=== PATIENT | male | born 1955 | race Caucasian/White ===

== ENCOUNTER → 2020-07-06 14:59 | Outpatient (BNVA) | payer MEDICAID, SELFPAY | PROVIDERS: PCP Hospitalist; Visit Provider Urology | DX: Z13.89 Encounter for screening for other disorder (principal) | CPT/HCPCS: 99212 ==

== ENCOUNTER → 2021-01-25 12:52 | Outpatient (BNVA) | payer MEDICAID, SELFPAY | PROVIDERS: Visit Provider Urology | DX: R97.20 Elevated prostate specific antigen [PSA] (principal); N40.0 Benign prostatic hyperplasia without lower urinary tract symptoms | CPT/HCPCS: 99202 ==

== ENCOUNTER → 2021-05-27 12:59 | Outpatient (BNVA) | payer MEDICAID, SELFPAY | PROVIDERS: Visit Provider Urology | DX: Z13.89 Encounter for screening for other disorder (principal) ==

== ENCOUNTER → 2021-11-29 11:20 | Outpatient (BNVA) | payer MEDICAID, SELFPAY | PROVIDERS: PCP Hospitalist; Visit Provider Urology | DX: R97.20 Elevated prostate specific antigen [PSA] (principal); N40.0 Benign prostatic hyperplasia without lower urinary tract symptoms | CPT/HCPCS: 99212 ==

== ENCOUNTER 2022-06-09 19:41 | Emergency (ER) | payer MEDICARE, MEDICAID, SELFPAY ==
--- NOTE | ~2022-06-09 | US_ITS ---
EXAMINATION: US VENOUS ULTRASOUND WITH DOPPLER LOWER EXTREMITY, RIGHT CLINICAL INFORMATION: Asymmetric swelling, ecchymosis. COMPARISON: None available. TECHNIQUE: Ultrasound of the deep veins is performed from the hip to the calf with compression sonography and color and pulse Doppler assessment. Spectral analysis with color-flow imaging is performed. FINDINGS: Somewhat limited exam as patient is combative and uncooperative. There is normal venous compression and respiratory variation and augmented flow. The visualized common femoral vein, superficial femoral vein, profunda femoral vein, popliteal vein, and the trifurcation region shows no evidence of deep venous thrombosis. There is no significant popliteal fossa cyst. If the patient's symptoms persist, followup ultrasound in 5 days 7 days might be of value to exclude proximal propagation from a non-visualized calf vein. US/US venous duplex LE RT IMPRESSION: No DVT demonstrated in the right lower extremity.
--- NOTE | ~2022-06-09 | US_ITS ---
EXAMINATION: COLOR-FLOW DUPLEX IMAGING OF THE BILATERAL LOWER EXTREMITY ARTERIAL SYSTEM. VELOCITY MEASUREMENTS THROUGHOUT THE FEMORAL ARTERIES. CLINICAL INFORMATION: 66-year-old male with right leg pain COMPARISON: None RIGHT FEMORAL RUNOFF VELOCITIES: The right common femoral artery measures 160cm/s and is triphasic. The right profunda femoral artery measures 102cm/s and is triphasic. Right proximal superficial femoral artery measures 88 cm/s and is biphasic. Mid superficial femoral artery measures 209cm/s and is triphasic. Distal right superficial femoral artery [id number] and is triphasic. Right popliteal velocity measures 94cm/s and is biphasic. Posterior tibial velocity is 144cm/s and flow is biphasic. US/US arterial duplex LE RT IMPRESSION: 1. Moderate stenosis in the mid superficial femoral artery. 2. Mild stenoses of the right common femoral artery and right posterior tibial artery.
--- NOTE | ~2022-06-09 | XR_ITS ---
EXAMINATION: XR CHEST CLINICAL INFORMATION: Chest pain, evaluate for CHF. COMPARISON: Chest radiograph 03/09/2016. TECHNIQUE: Frontal view of the chest was obtained. FINDINGS: Evaluation is limited due to patient's rotation and poor inspiratory effort. There is diffuse interstitial thickening without discrete focal consolidation. No significant pleural effusion or pneumothorax. Stable cardiomediastinal silhouette. No acute osseous abnormalities. XR/XR chest 1V IMPRESSION: Diffuse interstitial thickening which is nonspecific and could be associated with pulmonary edema or atypical infections.
[2022-06-09 19:57] VITALS: BP 182/100; PULSE 82; RESP 18; TEMP 36.7; O2SAT 93; O2SAT 94; BMI 45.9
--- NOTE | 2022-06-09 21:02 | ED_ITS ---
HPI - General Adult General Chief complaint: Wound/Laceration Stated complaint: RT FOOT SORE SWELLING Time Seen by Provider: 06/09/22 20:46 Source: patient Mode of arrival: EMS Limitations: other ( Dementia) History of Present Illness HPI narrative: 66-year-old male who was sent to the emergency department for evaluation of right lower extremity swelling ecchymosis and blisters. The patient is not a reliable informant secondary to his dementia. the following was obtained prescribed transfer note: Wound on right heel ( open blister), anorexia, disorientation , tests CBC, PT/INR ultrasound right leg . Patient received Tylenol at 16:00 hours. Related Data Home Medications Medication Instructions Recorded Confirmed acetaminophen 325 mg capsule 650 mg PO QID PRN 07/06/20 11/29/21 atorvastatin 40 mg tablet 40 mg PO DAILY 07/06/20 11/29/21 benztropine 0.5 mg tablet 0.5 mg PO DAILY 07/06/20 11/29/21 dulaglutide 0.75 mg/0.5 mL 0.75 mg subcut QWEEK 07/06/20 11/29/21 subcutaneous pen injector (Trulicity) gemfibrozil 600 mg tablet 600 mg PO DAILY 07/06/20 11/29/21 lisinopril 5 mg tablet 5 mg PO DAILY 07/06/20 11/29/21 warfarin 5 mg tablet 5 mg PO DAILY 07/06/20 11/29/21 Previous Rx's Medication Instructions Recorded finasteride 5 mg tablet 5 mg PO DAILY 90 days #90 tabs 11/29/21 Allergies Allergy/AdvReac Type Severity Reaction Status Date / Time No Known Allergies Allergy Verified 11/24/21 09:59 [No Known Allergies*] Review of Systems Review of Systems: Unobtainable secondary to dementia [facility] Past Medical History [facility] Narrative: social history: Patient is resident of the [facility] Medical History Dementia Diabetes mellitus, type II Elevated PSA HTN (hypertension) Lupus anticoagulant disorder Major depressive disorder Thiamine deficiency Social History Social History Advance Directives: Yes Advance Directives Information Provided: No Advance Directives on File: No Physical Exam ED Vital Signs: Vital Signs - 24 hr 06/09/22 19:57 06/10/22 03:56 06/10/22 05:51 Temperature 98.1 F 98.2 F 98.4 F Pulse Rate 82 68 99 Respiratory Rate 18 14 18 Blood Pressure 131/69 154/64 H Pulse Oximetry 93 92 Oxygen Delivery Method Room Air Room Air Room Air BMI result Body Mass Index 45.9 Const Other: awake, alert, male patient, answers questions with yes or no answers, lacks insight as to why he is here, unreliable informant secondary to his dementia, elevated BMI 45.9 [facility] Head: Yes normal to inspection, Yes normocephalic and Yes atraumatic Ears: external ears normal General nose exam: Normal external nose present Face and sinus: Yes normal facial exam Mouth: Normal oral and palatal mucosa present Throat: Yes posterior oropharynx normal Eyes General: appearance normal, both eyes and all related structures Pupils: Equal, round and reactive pupils present Neck Neck: Yes normal visual inspection, Yes no lymphadenopathy, Yes trachea midline and Yes supple Chest Chest palpation & inspection: normal inspection of the chest and normal palpation of entire chest wall Resp Effort & Inspection: normal respiratory effort and able to speak in complete se ntences Auscultation: clear to auscultation bilaterally Cardio Rate: regular rate Rhythm: regular rhythm Heart sounds: S1 normal heart sound present, S2 normal heart sound present and no murmurs GI Other: abdomen is soft, nontender nondistended, obese General: Yes no CVA tenderness Back/Spine/Pelvis Back: no CVA tenderness Skin General skin exam: no rashes or lesions noted Neuro Cranial nerves: Yes CN's II-XII intact bilaterally and Yes Equal, round and reactive pupils present Cognition (Neuro): normal cognition Extrem Other: patient's right lower extremity appears larger than the left, right foot exam: wearing heel protecting boot on his left foot, the patient has an unroofed blister over his heel and a ecchymotic blister on his lateral heel, there is ecchymosis of the toes and foot , there is increased warmth to the right foot but no erythema. Medical Decision Making Medical Decision Making MDM Narrative: 66-year-old male with a history of dementia, diabetes mellitus, hypertension, hyperlipidemia, hypercoagulable state secondary to lupus anticoagulant, depression, BPH, sent in from [facility] for evaluation of increased swelling, ecchymosis and ecchymotic blisters to his right foot and heel. Patient is unreliable informant and lacks insight as to why he is here. Patient was awake, pleasant, cooperative in answering questions with mainly yes or no answers. Patient's right extremity is ecchymotic and large in the left lower extremity. I did order CBC, CMP, PT /INR, PTT, BNP, troponin, EKG, chest x-ray right lower extremity ultrasound venous and arterial to rule out DVT or vascular compromise. 2310: My independent interpretation patient's workup data is as follows: CBC was normal. CMP was normal. CRP is elevated 6.08. BNP is normal at 15. INR is subtherapeutic at 1.4. Chest x-ray on my interpretation revealed no acute disease compared to previous, I do not think that he has CHF based on this x-ray. Twelve EKG was unremarkable. 0745: The patient initially had arterial Doppler studies but then refused the venous study since he was too tired and we no longer had ultrasound coverage. Therefore the patient was kept in the emergency department until he can get a duplex ultrasound of his right lower extremity this morning. At the end of my s hift, patient's care was turned over to my colleague Dr. Stone. Differential Diagnosis Differential includes was not limited to DVT, bleeding into the extremity, cellulitis, pressure ulcers Admission/Observation Consideration of admission/observation: Escalation of care including admissi on/observation considered Lab Data MDM Lab Attestation statement: I reviewed the patient's lab results. 06/09/22 22:14 06/09/22 22:14 Labs: Lab Results 06/09/22 06/09/22 06/09/22 Range/Units 22:14 22:14 22:14 WBC 10.6 (4.8-10.8) X10*3/uL RBC 4.54 L (4.60-5.80) X10*6/uL Hgb 13.6 L (14.0-18.0) g/dl Hct 40.4 L (42.0-52.0) % MCV 89.0 (80.0-98.0) fL MCH 30.0 (27.0-33.0) pg MCHC 33.7 (31.0-36.0) g/dl RDW 12.7 (11.0-16.0) % Plt Count 339 (160-400) X10*3/uL MPV 10.7 (9.4-12.4) fL Immature Gran % (Auto) 0.2 (0.0-0.4) % Neut % (Auto) 71.8 (45-73) % Lymph % (Auto) 17.7 L (20-40) % [place] % (Auto) 8.7 (2-11) % Eos % (Auto) 1.0 (0-4) % Baso % (Auto) 0.6 (0-2) % Lymph # (Auto) 1.9 (1.2-4.9) X10*3/uL [place] # (Auto) 0.9 (0.1-1.2) X10*3/uL Eos # (Auto) 0.1 (0.0-0.4) X10*3/uL Baso # (Auto) 0.1 (0.0-0.2) X10*3/uL Abs Immat Gran (auto) 0.02 (0.00-0.03) X10*3/uL Absolute Neuts (auto) 7.6 (2.0-8.3) x10*3/uL Absolute Nucleated RBC 0.000 (0.0-0.012) X10*3/uL Nucleated RBC % (auto) 0.0 (0.0-0.2) /100WBC PT 15.8 H (10.0-13.1) SEC INR 1.4 H (0.9-1.1) APTT 38.2 H (26.0-36.4) SEC Sodium 136 (135-145) mmol/L Potassium 4.2 (3.3-5.1) mmol/L Chloride 96 (96-108) mmol/L Carbon Dioxide 27 (22-29) mmol/L Anion Gap 17 (12-20) BUN 23 H (9-16) mg/dL Creatinine 0.97 (0.5-1.4) mg/dL Estim Creat Clear Calc 102.9 Estimated GFR > 60 Random Glucose 106 (60-115) mg/dL Lactic Acid (0.5-2.0) mmol/L Calcium 9.7 (8.4-10.2) mg/dL Total Bilirubin 1.0 (0.0-1.0) mg/dL AST 34 (5-37) U/L ALT 34 (0-40) U/L Alkaline Phosphatase 102 (39-117) U/L Troponin I High Sens (<3.5-35.0) ng/L C-Reactive Protein (< or = 0.50) mg/dL B-Natriuretic Peptide Total Protein 7.8 (6.5-8.0) g/dL Albumin 4.2 (3.5-5.0) g/dL Lipase (8-78) U/L 06/09/22 06/09/22 06/09/22 Range/Units 22:14 22:14 22:14 WBC (4.8-10.8) X10*3/uL RBC (4.60-5.80) X10*6/uL Hgb (14.0-18.0) g/dl Hct (42.0-52.0) % MCV (80.0-98.0) fL MCH (27.0-33.0) pg MCHC (31.0-36.0) g/dl RDW (11.0-16.0) % Plt Count (160-400) X10*3/uL MPV (9.4-12.4) fL Immature Gran % (Auto) (0.0-0.4) % Neut % (Auto) (45-73) % Lymph % (Auto) (20-40) % [place] % (Auto) (2-11) % Eos % (Auto) (0-4) % Baso % (Auto) (0-2) % Lymph # (Auto) (1.2-4.9) X10*3/uL [place] # (Auto) (0.1-1.2) X10*3/uL Eos # (Auto) (0.0-0.4) X10*3/uL Baso # (Auto) (0.0-0.2) X10*3/uL Abs Immat Gran (auto) (0.00-0.03) X10*3/uL Absolute Neuts (auto) (2.0-8.3) x10*3/uL Absolute Nucleated RBC (0.0-0.012) X10*3/uL Nucleated RBC % (auto) (0.0-0.2) /100WBC PT (10.0-13.1) SEC INR (0.9-1.1) APTT (26.0-36.4) SEC Sodium (135-145) mmol/L Potassium (3.3-5.1) mmol/L Chloride (96-108) mmol/L Carbon Dioxide (22-29) mmol/L Anion Gap (12-20) BUN (9-16) mg/dL Creatinine (0.5-1.4) mg/dL Estim Creat Clear Calc Estimated GFR Random Glucose (60-115) mg/dL Lactic Acid 1.3 (0.5-2.0) mmol/L Calcium (8.4-10.2) mg/dL Total Bilirubin (0.0-1.0) mg/dL AST (5-37) U/L ALT (0-40) U/L Alkaline Phosphatase (39-117) U/L Troponin I High Sens (<3.5-35.0) ng/L C-Reactive Protein 6.08 H (< or = 0.50) mg/dL B-Natriuretic Peptide Cancelled Total Protein (6.5-8.0) g/dL Albumin (3.5-5.0) g/dL Lipase 18 (8-78) U/L 06/09/22 06/09/22 Range/Units 22:14 22:14 WBC (4.8-10.8) X10*3/uL RBC (4.60-5.80) X10*6/uL Hgb (14.0-18.0) g/dl Hct (42.0-52.0) % MCV (80.0-98.0) fL MCH (27.0-33.0) pg MCHC (31.0-36.0) g/dl RDW (11.0-16.0) % Plt Count (160-400) X10*3/uL MPV (9.4-12.4) fL Immature Gran % (Auto) (0.0-0.4) % Neut % (Auto) (45-73) % Lymph % (Auto) (20-40) % [place] % (Auto) (2-11) % Eos % (Auto) (0-4) % Baso % (Auto) (0-2) % Lymph # (Auto) (1.2-4.9) X10*3/uL [place] # (Auto) (0.1-1.2) X10*3/uL Eos # (Auto) (0.0-0.4) X10*3/uL Baso # (Auto) (0.0-0.2) X10*3/uL Abs Immat Gran (auto) (0.00-0.03) X10*3/uL Absolute Neuts (auto) (2.0-8.3) x10*3/uL Absolute Nucleated RBC (0.0-0.012) X10*3/uL Nucleated RBC % (auto) (0.0-0.2) /100WBC PT (10.0-13.1) SEC INR (0.9-1.1) APTT (26.0-36.4) SEC Sodium (135-145) mmol/L Potassium (3.3-5.1) mmol/L Chloride (96-108) mmol/L Carbon Dioxide (22-29) mmol/L Anion Gap (12-20) BUN (9-16) mg/dL Creatinine (0.5-1.4) mg/dL Estim Creat Clear Calc Estimated GFR Random Glucose (60-115) mg/dL Lactic Acid (0.5-2.0) mmol/L Calcium (8.4-10.2) mg/dL Total Bilirubin (0.0-1.0) mg/dL AST (5-37) U/L ALT (0-40) U/L Alkaline Phosphatase (39-117) U/L Troponin I High Sens 6.3 (<3.5-35.0) ng/L C-Reactive Protein (< or = 0.50) mg/dL B-Natriuretic Peptide 15 Total Protein (6.5-8.0) g/dL Albumin (3.5-5.0) g/dL Lipase (8-78) U/L Independent Interpretation I performed an independent interpretation of an: EKG and Plain X-Ray Interpretation: My independent interpretation of the patient's one-view chest x-ray is as follows: increased interstitial markings bilaterally unchanged compared to x- ray dated 03/24/2016 Radiology Impression Discussion of test interpretation with radiology: I have reviewed the radiologist's reading. Radiologist Impression: XR chest 1V IMPRESSION: Diffuse interstitial thickening which is nonspecific and could be associated with pulmonary edema or atypical infections. Dictated By:Anastasia Siddiqui External Record Review External record reviewed: Outpatient record ( record sent in from [facility] were reviewed) Discharge Plan Discharge Clinical Impression: Leg edema, right, Ecchymosis, Blood blister, Warfarin anticoagulation Patient Disposition: Still a Patient Additional Instructions: You were not anemic with an H&H of 13.6 and 40.4. Your PT/INR were subtherapeutic at 15.8 and 1.4. The provider that manages your PT/INR will need to increase your warfarin and follow your PT/INR to make sure that your anticoagulated. Your comprehensive metabolic panel was normal. Prescriptions: No Action acetaminophen 325 mg capsule 650 mg PO QID PRN atorvastatin 40 mg tablet 40 mg PO DAILY benztropine 0.5 mg tablet 0.5 mg PO DAILY warfarin 5 mg tablet 5 mg PO DAILY gemfibrozil 600 mg tablet 600 mg PO DAILY lisinopril 5 mg tablet 5 mg PO DAILY Trulicity 0.75 mg/0.5 mL pen injector 0.75 mg subcut QWEEK finasteride 5 mg tablet 5 mg PO DAILY 90 Days Qty: 90 3RF
--- NOTE | 2022-06-09 21:08 | ECG_ITS ---
Test Reason : shortness of natalie Blood Pressure : / mmHG Vent. Rate : 080 BPM Atrial Rate : 080 BPM P-R Int : 134 ms QRS Dur : 094 ms QT Int : 372 ms P-R-T Axes : 067 021 049 degrees QTc Int : 429 ms Normal sinus rhythm Cannot rule out Anterior infarct , age undetermined Abnormal ECG When compared with ECG of 09-MAR-2016 11:01, No significant change was found Referred By: Brandyn Carlin Electronically Signed By:GUILLE MEAD MD
[2022-06-09 22:21] LABS: MANUAL DIFF FLAG NO
[2022-06-09 22:28] LABS: Basophils Absolute Auto 0.1 X10*3/uL (0.0-0.2); Basophils Percent Auto 0.6 % (0-2); Eosinophils Absolute Auto 0.1 X10*3/uL (0.0-0.4); Hematocrit 40.4 % (42.0-52.0); Hemoglobin 13.6 g/dl (14.0-18.0); Imm Gran Abs Auto 0.02 X10*3/uL (0.00-0.03); Imm Gran Pct Auto 0.2 % (0.0-0.4); Lymphocytes Absolute Auto 1.9 X10*3/uL (1.2-4.9); Lymphocytes Percent Auto 17.7 % (20-40); Mean Corpuscular HGB Conc 33.7 g/dl (31.0-36.0); Mean Platelet Volume 10.7 fL (9.4-12.4); Monocytes Absolute Auto 0.9 X10*3/uL (0.1-1.2); Monocytes Percent Auto 8.7 % (2-11); Neutrophils Absolute Auto 7.6 x10*3/uL (2.0-8.3); Neutrophils Percent Auto 71.8 % (45-73); Platelet Count 339 X10*3/uL (160-400); Red Blood Count 4.54 X10*6/uL (4.60-5.80); Red Cell Distribution Width 12.7 % (11.0-16.0); White Blood Count 10.6 X10*3/uL (4.8-10.8)
[2022-06-09 22:34] LABS: INTERNATIONAL NORM RATIO 1.4 (0.9-1.1); Prothrombin Time 15.8 SEC (10.0-13.1)
[2022-06-09 22:37] LABS: Lactic Acid 1.3 mmol/L (0.5-2.0); Partial Thromboplastin Time 38.2 SEC (26.0-36.4)
[2022-06-09 22:40] LABS: C Reactive Protein 6.08 mg/dL (< or = 0.50); Lipase 18 U/L (8-78)
[2022-06-09 22:43] LABS: Alanine Aminotransferase 34 U/L (0-40); Albumin Level 4.2 g/dL (3.5-5.0); Alkaline Phosphatase 102 U/L (39-117); Anion Gap 17 (12-20); Aspartate Amino Transferase 34 U/L (5-37); Blood Urea Nitrogen 23 mg/dL (9-16); Calcium 9.7 mg/dL (8.4-10.2); Carbon Dioxide 27 mmol/L (22-29); Chloride 96 mmol/L (96-108); Creatinine Clr Calc Pharmacy 102.9; Estimated Glomerular Filt Rate > 60; Glucose Random 106 mg/dL (60-115); Potassium 4.2 mmol/L (3.3-5.1); Sodium 136 mmol/L (135-145); Total Protein 7.8 g/dL (6.5-8.0)
[2022-06-09 22:45] LABS: Troponin-I High Sensitivity 6.3 ng/L (<3.5-35.0)
[2022-06-09 22:48] LABS: B Type Natriuretic Peptide 15 pg/mL (<100)
--- NOTE | 2022-06-10 00:22 | PC.NURSE ---
Patient refused IV.
[2022-06-10 03:56] VITALS: BP 131/69; PULSE 68; RESP 14; TEMP 36.8
[2022-06-10 05:51] VITALS: BP 154/64; PULSE 99; RESP 18; TEMP 36.9; O2SAT 92
[2022-06-10 08:45] LABS: Appearance Urine Clear; Color Urine Yellow; Glucose Urine UA Negative (Negative); Leukocyte Esterase Urine Negative (Negative); Nitrite Urine Negative (Negative); UMIC TRIGGER UACC YES; Urine Blood Small (1+) (Negative); Urine Ketones Negative (Negative); Urine Protein Trace mg/dL (Neg-Trace)
--- NOTE | 2022-06-10 08:47 | PC.NURSE ---
U/S COMPLETE, UA SENT, PT INCONTINENT OF URINE AND CLEANED AND LINENS CHANGED, NO COMPLAINTS, MULT BRUISES ON LOWER LEGS AND HE IS UNSURE HOW HE GOT THEM
[2022-06-10 08:51] LABS: Bacteria Urine None Seen (None Seen); Hyaline Casts Urine 0-2 /LPF (0-2); RBC Urine >20 /HPF (0-2); Squamous Epithelial Cell Urine 0-2 /HPF (0-2); WBC Urine 0-5 /HPF (0-5)
--- NOTE | 2022-06-10 10:21 | PC.NURSE ---
pt has a popped blister approx 3 inch x 3 inch covered with bandage, report called to snf
--- NOTE | 2022-06-10 11:12 | PC.NURSE ---
assumed care of pt at 110, pt resting quietly pending transportation to [facility], RN-RN report called in by prior RN.
== END 2022-06-10 12:09 ==
PROVIDERS: Emergency Medicine Emergency Medical Services; Emergency Provider Emergency Medicine; PCP Hospitalist
DX: R60.0 Localized edema (principal); R07.89 Other chest pain; R23.3 Spontaneous ecchymoses; R06.02 Shortness of breath; M79.604 Pain in right leg; Z79.01 Long term (current) use of anticoagulants; Z79.899 Other long term (current) drug therapy
CPT/HCPCS: 36415; 71045; 80053; 81001; 83605; 83690; 83880; 84484; 85025; 85610; 85730; 86140; 87040; 93005; 93926; 93971; 99284

== ENCOUNTER 2022-11-28 11:14 | Outpatient (AMB) | payer MEDICARE, MEDICAID, SELFPAY ==
--- NOTE | 2022-11-28 11:18 | MHC.OFFVIS ---
Intake Intake Visit Reasons: 1Y PSA(psa?) Intake Note: Patient is Present for Follow Up Urology Medication: Finasteride Antibiotic Allergies:None Blood Thinners: Warfarin PSA Lab was not completed Allergies No Known Allergies [No Known Allergies*] Allergy (Verified 11/28/22 11:19) Medication List - Last Reconciled 11/28/22 by Mark Victor MD acetaminophen 650 mg PO QID PRN atorvastatin 40 mg PO DAILY benztropine 0.5 mg PO DAILY dulaglutide (Trulicity) 0.75 mg subcut QWEEK finasteride 5 mg PO DAILY 90 days gemfibrozil 600 mg PO DAILY lisinopril 5 mg PO DAILY warfarin 5 mg PO DAILY HPI HPI Comments History of Present Illness Details Filiberto is a male. Resident of [facility]. He is a patient of Dr. colvin. He is seen for the following urologic condition - lower urinary tract symptoms - elevated PSA Care worker states in diapers with incontinence Does have sensation but often can not make it to the bathroom in time Has physical limitations in wheelchair Addressing overactive bladder not likely to be helpful Has been on prompted voiding Suggest moving to timed voiding every 3-[address] resident on toilet and wait 2-3 minutes Elevated PSA Has been on finasteride for prostate symptoms PSA 12/26 5.1, 11/26 1.5 PFSH Medical History Elevated PSA Major depressive disorder Diabetes mellitus, type II HTN (hypertension) Thiamine deficiency Lupus anticoagulant disorder Dementia Review of Systems Const Denies chills and Denies fever(s) Card Reports no additional complaints and Denies syncope Resp Denies cough GI Denies abdominal pain and Denies heartburn Reports as per HPI and Denies change in libido Neuro Denies syncope Psych Denies change in libido Endo Denies change in libido Physical Exam Const General: cooperative, healthy appearing, comfortable and no acute distress Orientation/consciousness: patient oriented x3 HEENT Face and sinus: Yes normal facial exam Mouth: moist mucous membranes Neck Neck: Yes normal visual inspection, Yes full ROM and Yes trachea midline Chest Chest palpation & inspection: normal inspection of the chest Resp Effort & Inspection: normal respiratory effort, able to speak in complete sentences and no respiratory distress GI Inspection: Yes normal to inspection Back/Spine/Pelvis Cervical Spine: normal cervical lordosis Thoracic/Lumbar Spine: thoracic and lumbar spine normal to inspection Skin General skin exam: no rashes or lesions noted Neuro General: patient oriented x3, gait normal, tone normal and moves all extremities Extrem General: Yes normal to inspection and Yes capillary refill normal Assessment & Plan Assessment & Plan (1) Urinary incontinence: Code(s): R32 - Unspecified urinary incontinence Qualifiers: Urinary Incontinence type: urge incontinence Qualified Code(s): N39.41 - Urge incontinence (2) BPH (benign prostatic hyperplasia): Code(s): N40.0 - Benign prostatic hyperplasia without lower urinary tract symptoms Qualifiers: Lower urinary tract symptom presence: symptoms present Lower urinary tract symptom detail: urinary frequency Qualified Code(s): N40.1 - Benign prostatic hyperplasia with lower urinary tract symptoms; R35.0 - Frequency of micturition (3) Elevated PSA: Code(s): R97.20 - Elevated prostate specific antigen [PSA] Plan Six month follow-up Orders: Orders Prostate Specific Antigen 6 Months R97.20 - Elevated prostate specific antigen [PSA] Patient Instructions: Imaging studies, laboratory and physical exam results were discussed and reviewed in detail. No major barriers to patient understanding were identified. An opportunity to ask questions regarding the treatment plan was provided. All questions were answered. The patient expressed understanding and agreement with the above treatment plan. The patient is aware they should contact our office by phone for worsening of their current condition or the appearance of new urologic symptoms. Compliance is encouraged with any medications and followup testing that is ordered. It is a privilege to participate in the urologic care of your patient. If you have any questions or concerns regarding treatment for the above conditions, or other urologic issues, please do not hesitate to contact me. The office telephone contact is [phone]. This note is constructed using voice recognition software. While every effort has been made to ensure accuracy dehairing machine tender errors may have been included. Yours sincerely, Dr Mark Victor MD, [facility] - Urology Providers of Expert, Compassionate Care for the Genitourinary System Coding Level of Care Code Est Pt Level 4 (74302) Diagnoses Urge incontinence of urine N39.41 Urinary Incontinence type: urge incontinence Benign prostatic hyperplasia with urinary frequency N40.1; R35.0 Lower urinary tract symptom presence: symptoms present Lower urinary tract symptom detail: urinary frequency Elevated PSA R97.20
== END 2022-11-28 12:17 | disposition home or self-care (01) ==
LOC: HO.HUSH 11:14
PROVIDERS: PCP Hospitalist; Visit Provider Urology
DX: N40.1 Benign prostatic hyperplasia with lower urinary tract symptoms (principal); N39.41 Urge incontinence; R35.0 Frequency of micturition; R97.20 Elevated prostate specific antigen [PSA]
CPT/HCPCS: 99214

== ENCOUNTER → 2022-11-28 11:14 | Outpatient (BNVA) | payer MEDICARE, MEDICAID, SELFPAY | PROVIDERS: PCP Hospitalist; Visit Provider Urology | DX: N40.1 Benign prostatic hyperplasia with lower urinary tract symptoms (principal); R35.0 Frequency of micturition; N39.41 Urge incontinence; R97.20 Elevated prostate specific antigen [PSA] | CPT/HCPCS: 99212 ==

== ENCOUNTER 2023-06-01 10:45 | Outpatient (AMB) | payer MEDICARE, MEDICAID, SELFPAY ==
--- NOTE | 2023-06-01 10:56 | A.OFFVIS_ITS ---
Intake Visit Reasons: 6m follow up/PSA Intake Note: Patient is Present for Follow Up Urology Medication: Finasteride, Antibiotic Allergies: None Blood Thinners: Warfarin Allergies No Known Allergies [No Known Allergies*] Allergy (Verified 06/01/23 10:56) Medication List - Last Reconciled 06/01/23 by Mark Victor MD acetaminophen 650 mg PO QID PRN atorvastatin 40 mg PO DAILY benztropine 0.5 mg PO DAILY dulaglutide (Trulicity) 0.75 mg subcut QWEEK finasteride 5 mg PO DAILY 90 days gemfibrozil 600 mg PO DAILY lisinopril 5 mg PO DAILY warfarin 5 mg PO DAILY HPI Comments Details: Filiberto is a male. Resident of [facility]. He is a patient of Dr. colvin. He is seen for the following urologic condition - lower urinary tract symptoms - elevated PSA Six-month follow-up Care worker states in diapers with incontinence Does have sensation but often can not make it to the bathroom in time Has physical limitations in wheelchair Addressing overactive bladder not likely to be helpful Has been on prompted voiding Suggest moving to timed voiding every 3-[address] resident on toilet and wait 2-3 minutes Twelve month follow-up PSA office Elevated PSA Has been on finasteride for prostate symptoms PSA 12/26 5.1, 11/26 1.5, 11/27 2.2 PFSH Medical History Elevated PSA Major depressive disorder Diabetes mellitus, type II HTN (hypertension) Thiamine deficiency Lupus anticoagulant disorder Dementia Review of Systems Const Denies chills and Denies fever(s) Card Reports no additional complaints and Denies syncope Resp Denies cough GI Denies abdominal pain and Denies heartburn Reports as per HPI and Denies change in libido Neuro Denies syncope Psych Denies change in libido Endo Denies change in libido Physical Exam Const General: cooperative, healthy appearing, comfortable and no acute distress Orientation/consciousness: patient oriented x3 HEENT Face and sinus: Yes normal facial exam Mouth: moist mucous membranes Neck Neck: Yes normal visual inspection, Yes full ROM and Yes trachea midline Chest Chest palpation & inspection: normal inspection of the chest Resp Effort & Inspection: normal respiratory effort, able to speak in complete sentences and no respiratory distress GI Inspection: Yes normal to inspection Back/Spine/Pelvis Cervical Spine: normal cervical lordosis Thoracic/Lumbar Spine: thoracic and lumbar spine normal to inspection Skin General skin exam: no rashes or lesions noted Neuro General: patient oriented x3, gait normal, tone normal and moves all extremities Extrem General: Yes normal to inspection and Yes capillary refill normal Assessment & Plan Assessment & Plan (1) Elevated PSA: Code(s): R97.20 - Elevated prostate specific antigen [PSA] Category: Medical (2) BPH (benign prostatic hyperplasia): Code(s): N40.0 - Benign prostatic hyperplasia without lower urinary tract symptoms Category: Medical Qualifiers: Lower urinary tract symptom presence: symptoms present Lower urinary tract symptom detail: urinary frequency Qualified Code(s): N40.1 - Benign prostatic hyperplasia with lower urinary tract symptoms; R35.0 - Frequency of micturition Plan Twelve month follow-up Orders: Orders Prostate Specific Antigen 364 Days N40.1 - Benign prostatic hyperplasia with lower urinary tract symptoms, R35.0 - Frequency of micturition Patient Instructions: Imaging studies, laboratory and physical exam results were discussed and reviewed in detail. No major barriers to patient understanding were identified. An opportunity to ask questions regarding the treatment plan was provided. All questions were answered. The patient expressed understanding and agreement with the above treatment plan. The patient is aware they should contact our office by phone for worsening of their current condition or the appearance of new urologic symptoms. Compliance is encouraged with any medications and followup testing that is ordered. It is a privilege to participate in the urologic care of your patient. If you have any questions or concerns regarding treatment for the above conditions, or other urologic issues, please do not hesitate to contact me. The office telephone contact is [phone]. This note is constructed using voice recognition software. While every effort has been made to ensure accuracy transportation superintendent errors may have been included. Yours sincerely, Dr Mark Victor MD, [facility] - Urology Providers of Expert, Compassionate Care for the Genitourinary System Coding Level of Care Code Est Pt Level 3 (71423) Diagnoses Elevated PSA R97.20 Benign prostatic hyperplasia with urinary frequency N40.1; R35.0 Lower urinary tract symptom presence: symptoms present Lower urinary tract symptom detail: urinary frequency
== END 2023-06-01 11:29 | disposition home or self-care (01) ==
PROVIDERS: PCP Hospitalist; Visit Provider Urology
DX: R97.20 Elevated prostate specific antigen [PSA] (principal); N40.1 Benign prostatic hyperplasia with lower urinary tract symptoms; R35.0 Frequency of micturition
CPT/HCPCS: 99213

== ENCOUNTER → 2023-06-01 10:45 | Outpatient (BNVA) | payer MEDICARE, MEDICAID, SELFPAY | PROVIDERS: PCP Hospitalist; Visit Provider Urology | DX: R97.20 Elevated prostate specific antigen [PSA] (principal); N40.1 Benign prostatic hyperplasia with lower urinary tract symptoms; R35.0 Frequency of micturition | CPT/HCPCS: 99212 ==

== ENCOUNTER 2024-05-27 11:14 | Outpatient (AMB) | payer MEDICARE, MEDICAID, SELFPAY ==
--- NOTE | 2024-05-27 12:06 | A.OFFVIS_ITS ---
Intake Visit Reasons: 1yr/Follow up/PSA/PVR(PSA?) Intake Note: Filiberto 68 yr old male presents today for his follow up visit. Allergies No Known Allergies [No Known Allergies*] Allergy (Verified 06/01/23 10:56) HPI Comments Details: Filiberto is a male. Resident of [facility]. He is a patient of Dr. Galo. He is seen for the following urologic condition - lower urinary tract symptoms - elevated PSA Yearly follow-up PSA 2.65 Slight increase Continue finasteride Care worker states in diapers with incontinence Does have sensation but often can not make it to the bathroom in time Has physical limitations in wheelchair Addressing overactive bladder not likely to be helpful Has been on prompted voiding Suggest moving to timed voiding every 3-[address] resident on toilet and wait 2-3 minutes Twelve month follow-up PSA office Elevated PSA Has been on finasteride for prostate symptoms PSA 12/26 5.1, 11/26 1.5, 11/27 2.2, 03/31 2.2 PFSH Medical History Elevated PSA Major depressive disorder Diabetes mellitus, type II HTN (hypertension) Thiamine deficiency Lupus anticoagulant disorder Dementia Review of Systems Const Denies chills and Denies fever(s) Card Reports no additional complaints and Denies syncope Resp Denies cough GI Denies abdominal pain and Denies heartburn Reports as per HPI and Denies change in libido Neuro Denies syncope Psych Denies change in libido Endo Denies change in libido Physical Exam Const General: cooperative, healthy appearing, comfortable and no acute distress Orientation/consciousness: patient oriented x3 HEENT Face and sinus: Yes normal facial exam Mouth: moist mucous membranes Neck Neck: Yes normal visual inspection, Yes full ROM and Yes trachea midline Chest Chest palpation & inspection: normal inspection of the chest Resp Effort & Inspection: normal respiratory effort, able to speak in complete sentences and no respiratory distress GI Inspection: Yes normal to inspection Back/Spine/Pelvis Cervical Spine: normal cervical lordosis Thoracic/Lumbar Spine: thoracic and lumbar spine normal to inspection Skin General skin exam: no rashes or lesions noted Neuro General: patient oriented x3, gait normal, tone normal and moves all extremities Extrem General: Yes normal to inspection and Yes capillary refill normal Results AMB Urinalysis, Automated UA Leukoctes 70 Feroz/uL Last Edit by LENY Mckenzie on 05/27/24 12:09 UA Nitrite Positive Last Edit by LENY Mckenzie on 05/27/24 12:09 UA Urobilinogen 0.2 mg/dL Last Edit by LENY Mckenzie on 05/27/24 12:09 UA Protein 15 mg/dL Last Edit by LENY Mckenzie on 05/27/24 12:09 UA pH 6.0 Last Edit by LENY Mckenzie on 05/27/24 12:09 UA Blood 25 Luis/uL Last Edit by LENY Mckenzie on 05/27/24 12:09 UA Specific Stevenson 1.020 Last Edit by LENY Mckenzie on 05/27/24 12:0 9 UA Ketone Negative Last Edit by LENY Mckenzie on 05/27/24 12:09 UA Bilirubin 0 mg/dL Last Edit by LENY Mckenzie on 05/27/24 12:09 UA Glucose 0 mg/dL Last Edit by LENY Mckenzie on 05/27/24 12:09 Assessment & Plan Assessment & Plan (1) Urinary incontinence: Code(s): R32 - Unspecified urinary incontinence Category: Medical Qualifiers: Urinary Incontinence type: urge incontinence Qualified Code(s): N39.41 - Urge incontinence Plan Twelve month follow-up PSA Orders: Orders Prostate Specific Antigen 12 Months R97.20 - Elevated prostate specific antigen [PSA] AMB Urinalysis Automated Today N39.41 - Urge incontinence Patient Instructions: This note is constructed using voice recognition software. While every effort has been made to ensure accuracy employee development director errors may have been included. Imaging studies, laboratory and physical exam results were discussed and reviewed in detail. No major barriers to patient understanding were identified. An opportunity to ask questions regarding the treatment plan was provided. All questions were answered. The patient expressed understanding and agreement with the above treatment plan. The patient is aware they should contact our office by phone for worsening of their current condition or the appearance of new urologic symptoms. Compliance is encouraged with any medications and followup testing that is ordered. It is a privilege to participate in the urologic care of your patient. If you have any questions or concerns regarding treatment for the above conditions, or other urologic issues, please do not hesitate to contact me. The office telephone contact is [phone]. Sincerely, Dr Mark Victor MD, [facility] - Urology Compassionate Specialist Care for the Genitourinary System Coding Level of Care Code Est Pt Level 4 (03946) Complex EM visit Add On G2211 Diagnoses Urge incontinence of urine N39.41 Urinary Incontinence type: urge incontinence
--- OUTSIDE RECORDS SUMMARY | 2024-05-27 13:30 | XMS_ITS | Patient Health Record ---
Author Organization [facility] Address [address] [place] [address] Care Team Providers Care Category Planner Name Role Phone Jacinto Galo Primary Care Provider Noe Restrepo Unavailable [phone] Allergies No Known Allergies Reason For Referral No Information Medications Medication SIG (Take, Route, Frequency, Duration) Notes Start Date End Date Status Ferrous Sulfate 325 (65 Fe) MG 1 tablet Orally Once a day for 30 day(s) Active Propranolol HCl 10 MG 1 tablet Orally th ree half tabs 3 times a day Active Eliquis 5 MG as directed Orally Active PriLOSEC OTC 20 MG 1 tablet 30 minutes before morning meal Orally Once a day for 30 day(s) Active Docusate Sodium 100 MG 1 capsule as need ed Orally Once a day for 30 day(s) Active Multivitamin & Mineral Active Bisacodyl 10 MG 1 suppository as nee ded Rectal Once a day for 30 day(s) Active Acetaminophen 325 MG 1 tablet as needed Orally every 4 hrs Active Haloperidol 1 MG 1/2 tablet orally th ree times a day Active Vitamin M32-Rlsbn Acid 500-400 MCG as directed Orally Active Glucagon Emergency 1 MG as directed Injection Active Trulicity 0.75 MG/0.5ML as directed Subcutaneous Active Gemfibrozil 600 MG 1 tablet 30 minutes before morning and evening meals Orally Twice a day for 30 day(s) Active Finasteride 5 MG 1 tablet Orally Once a day for 30 day(s) Active Senna 8.6 MG 2 tablets at bedtime as needed Orally Once a day for 30 day(s) Active Fleet Enema 7-19 GM/118ML as directed Rectal Active Mirtazapine 7.5 MG 2 tablets at bedtime Orally Once a day for 30 day(s) Active Benztropine Mesylate 0.5 MG 1 tablet at bedtime Orally Once a day for 30 day(s) Active metFORMIN HCl 1000 MG 1 tablet with a me al Orally twice a day Active Atorvastatin Calcium 40 MG 1 tablet Oral ly Once a day for 30 day(s) Active Magnesium Oxide 400 MG 1 tablet as neede d Orally Once a day for 30 day(s) Active Actos 30 MG 1 tablet Orally Once a day for 30 day(s) Active Lisinopril 5 MG 1 tablet Orally Once a day for 30 day(s) Active Immunizations Vaccine Route Administration Date Status Comme nts Influenza Unknown 11/05/2020 Administered Social History Tobacco Use: Social History Observation Description Date Details (start date - stop date) Current Smoker NA - NA Tobacco Use/Smoking Question Answer Notes Patient is a current smoker How often do you smoke cigarettes? every day Alcohol Screen Question Answer Notes Did you have a drink containing alcohol in the p ast year? No Points 0 Interpretation Negative Problems Problem Type SNOMED Code ICD Code Onset Dates Problem Status W/U Status Risk Notes Problem [id number] Encounter for screening for malignant neoplasm of colon (Z12.11) Active confirmed Problem [id number] Preprocedural examination (Z01.818) Active confirmed Plan Of Treatment No Information Insurance Providers Payer Name Payer Address Payer Phone Subscriber Number Group Number Insured Name Patient Relationship to Insured Coverage Start Date Coverage End Date CARE [address] [place] [address] [phone] [id number] ELIANE RUIZ Self - patient is the insured Medical (General) History Medical History History ICD Code dementia major depression disorder lupus anticoagulant syndrome thiamine deficiency anemia hypertension personal hx of other venous thrombosis a nd embolism restlessness and agitation GERD w/o esophagitis type II diabetes elevated prostate specific antigen Surgical History Surgery Date(Month/Year)
== END 2024-05-27 12:17 | disposition home or self-care (01) ==
LOC: HO.HUSH 11:15
PROVIDERS: PCP Hospitalist; Visit Provider Urology
DX: N39.41 Urge incontinence (principal)
CPT/HCPCS: 99214; G2211

== ENCOUNTER → 2024-05-27 11:14 | Outpatient (BNVA) | payer MEDICARE, MEDICAID, SELFPAY | PROVIDERS: PCP Hospitalist; Visit Provider Urology | DX: N39.41 Urge incontinence (principal) | CPT/HCPCS: 81003; 99212 ==

== ENCOUNTER → 2024-11-10 08:46 | Outpatient (REF) | payer MEDICARE, MEDICAID, SELFPAY ==
--- OUTSIDE RECORDS SUMMARY | 2024-11-10 09:35 | XMS_ITS | Patient Health Record ---
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 Name Role Phone Jacinto Galo Primary Care Provider Noe Restrepo Unavailable [phone] Allergies No Known Allergies Reason For Referral [...] th ree times a day Active Vitamin Q55-Wbbrh Acid 500-400 MCG as directed Orally Active [...] Problem Status W/U Status Risk Notes Problem [id number] Encounter for screening for malignant neoplasm of colon (Z12.11) Active confirmed Problem [id number] Preprocedural examination (Z01.818) Active confirmed Plan Of Treatment No Information Insurance Providers Payer Name Payer Address Payer Phone Subscriber Number Group Number Insured Name Patient Relationship to Insured Coverage Start Date Coverage End Date CARE [address] [place] [address] [phone] [id number] ELIANE RUIZ Self - patient is the insured Medical (General) History Medical History History ICD Code dementia major depression disorder lupus anticoagulant syndrome thiamine deficiency anemia hypertension personal hx of other venous thrombosis a nd embolism restlessness and agitation GERD w/o esophagitis type II diabetes elevated prostate specific antigen Surgical History Surgery Date(Month/Year)
== END ==
LOC: HO.CARD 08:46
PROVIDERS: PCP Hospitalist; Visit Provider Hospitalist
DX: Z13.89 Encounter for screening for other disorder (principal)